=== PATIENT | female | born 1970 | race Caucasian/White ===

== ENCOUNTER 2016-11-11 20:48 | Emergency (ER) | payer OTHER | END 2016-11-11 21:57 | disposition left against medical advice (07) | LOC: FER 20:48 | DX: R22.1 Localized swelling, mass and lump, neck (principal); Z53.8 Procedure and treatment not carried out for other reasons ==

== ENCOUNTER → 2020-07-17 | Day surgery (SDC) | payer OTHER ==
[~2020-07-17] MED LIST: AZITHROMYCIN250 MG PO; BUSPIRONE HCL15 MG PO; CALCIUM PO; CLEOCIN300 MG PO; KEPPRA PO; KEPPRA250 MG PO; LIDOCAINE PAIN1 EACH EXT; MOBIC7.5 M1 PO; NEBULIZER UNIT NEB; PHENERGAN25 M1 PO; SYNTHROID150 MCG PO; TEGRETOL200 MG PO; VIT B 12 PO; VIT C PO; WELLBUTRIN XL150 MG PO; XOPENEX (00.63 MG/3 INH
[2020-07-17 08:48] LABS: BASOPHIL 0.3 % (0-2); EOSINOPHIL 1.4 % (0-5); HCT 42.4 % (37.0-47.0); HGB 13.9 g/dl (12.5-16.0); LYMPHOCYTE 26.5 % (15-48); MCH 29.6 pg (25.0-31.0); MCHC 32.8 g/dL (32.0-36.0); MCV 90.4 fL (78.0-100.0); MONOCYTE 4.7 % (0-12); MPV 9.5 fL (6.0-9.5); NEUTROPHIL 66.7 % (41-80); NRBC 0; PLT 279 K/uL (150-400); RBC 4.69 M/uL (4.20-5.40); RDW 14.2 % (11.5-14.0); WBC 12.2 K/uL (4.0-10.5)
== END | disposition home or self-care (01) ==
LOC: FAS 07:50
PROVIDERS: Oral & Maxillofacial Surgery
DX: K02.63 Dental caries on smooth surface penetrating into pulp (principal); K21.9 Gastro-esophageal reflux disease without esophagitis; G40.909 Epilepsy, unspecified, not intractable, without status epilepticus; Z98.890 Other specified postprocedural states; Z20.822 Contact with and (suspected) exposure to COVID-19
CPT/HCPCS: 36415; 85025; J1100; J1170; J2250; J2405; J2704; J3010; J7120

== ENCOUNTER 2020-12-01 14:44 | Emergency (ER) | payer OTHER ==
[~2020-12-01 14:44] MED LIST changes: -KEPPRA250 MG PO; -MOBIC7.5 M1 PO; -NEBULIZER UNIT NEB; -SYNTHROID150 MCG PO
[2020-12-01 17:21] LABS: ALBUMIN 3.9 g/dL (3.4-5.0); BILIRUBIN - TOTAL 0.3 mg/dL (0.2-1.0); BUN/CREAT RATIO (CALC) 19.4 RATIO; CREATININE 1.03 mg/dL (0.51-0.95); POTASSIUM 3.8 mmol/L (3.5-5.1); TOTAL PROTEIN 6.9 g/dL (6.4-8.2)
[2020-12-01 17:22] LABS: BASOPHIL 0.6 % (0-2); EOSINOPHIL 6.7 % (0-5); HCT 37.3 % (37.0-47.0); HGB 12.7 g/dl (12.5-16.0); LYMPHOCYTE 46.1 % (15-48); MCH 30.6 pg (25.0-31.0); MCV 89.9 fL (78.0-100.0); MONOCYTE 5.7 % (0-12); MPV 10.4 fL (6.0-9.5); NEUTROPHIL 40.8 % (41-80); NRBC 0; PLT 232 K/uL (150-400); RBC 4.15 M/uL (4.20-5.40); RDW 13.1 % (11.5-14.0)
[2020-12-01 17:28] LABS: PRO-BNP 86 pg/mL (<125)
[2020-12-01] MEDS ORDERED: NEBULIZER UNIT NEB (20:02)
[2020-12-01] MEDS ORDERED: WELLBUTRIN XL150 MG PO (20:02)
[2020-12-01] MEDS ORDERED: MOBIC7.5 M1 PO (20:02)
[2020-12-01] MEDS ORDERED: KEPPRA250 MG PO (20:02)
[2020-12-01] MEDS ORDERED: SYNTHROID150 MCG PO (20:02)
[2020-12-01] MEDS ORDERED: PHENERGAN25 M1 PO (20:02)
[2020-12-01] MEDS ORDERED: XOPENEX (00.63 MG/3 INH (20:02)
== END 2020-12-01 20:10 | disposition home or self-care (01) ==
LOC: FER 14:44
PROVIDERS: Emergency Medicine
DX: R06.02 Shortness of breath (principal); F17.200 Nicotine dependence, unspecified, uncomplicated; Z88.0 Allergy status to penicillin
CPT/HCPCS: 36415; 71045; 80053; 83880; 84484; 85025; 85379; 93005; 94640; 94762